=== PATIENT | male | born 1990 | race Caucasian/White ===

== ENCOUNTER 2021-03-03 14:09 | Outpatient (CLI) | payer SELFPAY ==
--- NOTE | 2021-03-03 14:22 | US_ITS ---
WS: [id number] TESTICULAR ULTRASOUND HISTORY: EPIDIDYMO-ORCHITIS COMPARISON: None available. TECHNIQUE: Real-time and color Doppler imaging or utilized to perform a testicular ultrasound. Right testicle: 4.5 cm x 2.6 cm x 2.1 cm. Normal size and echogenicity. No mass or torsion. Normal color Doppler is present throughout. Systolic and diastolic velocities are both present. No significant hydrocele. Right epididymis: Normal epididymis with a small spermatocele measuring 1.2 cm at its maximum. Left testicle: 4.4 cm x 3.3 cm x 2.3 cm. Normal sized testicle with increased vascularity. Increased vascularity throughout. No mass. There is a small complex hydrocele. There is marked thickening of the scrotal wall. Left epididymis: Marked thickening and variable echogenicity throughout the epididymis. Marked increa sed vascularity. US/US scrotum [id number] IMPRESSION: Moderately severe acute LEFT epididymo-orchitis.
== END 2021-03-03 14:10 | disposition home or self-care (01) ==
PROVIDERS: PCP Physician Assistant Medical; Visit Provider Registered Nurse
DX: N45.3 Epididymo-orchitis (principal)
CPT/HCPCS: 76870